=== PATIENT | female | born 2000 | race Caucasian/White ===

== ENCOUNTER 2024-08-15 19:53 | Emergency (ER) | payer SELFPAY ==
[2024-08-15] MEDS ORDERED: Ondansetron ODT 4 MG TAB ONE (20:38)
[2024-08-15] MEDS ORDERED: Acetaminophen 500 MG TAB ONE (20:38)
[2024-08-15 20:54] LABS: Bacteria/HPF 2+ HPF (None Seen); Bilirubin Negative (Negative); Blood, Urine Negative (Negative); CAUTI Indications for Culture Pelvic or flank pain; Clarity Turbid (Clear); Glucose, Urine (Dipstick) Normal (Negative); Ketone, Urine Greater than 150 mg/dL (Negative); Leukocyte 500 Leu/uL (Negative); Nitrite Negative (Negative); Protein, Urine (Dipstick) 30 mg/dL (Neg-Trace); Specific Gravity, Urine 1.032 (1.002-1.036); Urobilinogen Normal mg/dL (Less than 2); WBC/HPF 21-50 HPF (0-3)
[2024-08-15 21:05] LABS: Urine Culture Reflex Yes Yes
[2024-08-16 06:21] LABS: Chlamydia by PCR, Vaginal Swab Not Detected (NotDetected); GC by PCR, Vaginal Swab Not Detected (NotDetected)
== END 2024-08-15 21:44 | disposition home or self-care (01) ==
LOC: ERS 19:53
DX: O23.42 Unspecified infection of urinary tract in pregnancy, second trimester (principal); N39.0 Urinary tract infection, site not specified; O26.892 Other specified pregnancy related conditions, second trimester; R10.10 Upper abdominal pain, unspecified; O99.891 Other specified diseases and conditions complicating pregnancy; R11.2 Nausea with vomiting, unspecified; Z3A.17 17 weeks gestation of pregnancy; Z75.3 Unavailability and inaccessibility of health-care facilities
CPT/HCPCS: 81001; 87081; 87086; 87428; 87430; 87480; 87491; 87510; 87591; 87660; Q0162